=== PATIENT | male | born 1940 | race Caucasian/White ===

== ENCOUNTER → 2020-05-14 14:18 | Outpatient (BNVA) | payer MEDICARE, SELFPAY | PROVIDERS: Visit Provider Specialist | DX: H49.9 Unspecified paralytic strabismus (principal); G72.9 Myopathy, unspecified; Z87.891 Personal history of nicotine dependence | CPT/HCPCS: 99205 ==

== ENCOUNTER 2020-05-14 16:02 | Outpatient (CLI) | payer MEDICARE, SELFPAY ==
[2020-05-14 17:29] LABS: Erythrocyte Sedimentation Rate 16 mm/hr (0-10)
[2020-05-14 17:53] LABS: C Reactive Protein 4.9 mg/L (0.0-4.9)
[2020-05-14 18:06] LABS: Vitamin B12 630 pg/mL (232-1245)
[2020-05-15 01:06] LABS: Folate Level > 20.0 ng/mL (4.5-32.2)
[2020-05-19 20:06] LABS: Acetylcholine Recept Modulatin 25
[2020-05-20 00:57] LABS: Methylmalonic Acid 157 nmol/L (87-318)
== END 2020-05-14 16:03 | disposition home or self-care (01) ==
LOC: LAB 16:07
PROVIDERS: Visit Provider Specialist
DX: D15.0 Benign neoplasm of thymus (principal); G70.00 Myasthenia gravis without (acute) exacerbation; R25.1 Tremor, unspecified
CPT/HCPCS: 36415; 82607; 82746; 83516; 83921; 85651; 86140